=== PATIENT | male | born 1955 | race Caucasian/White ===

== ENCOUNTER 2020-05-23 13:22 | Outpatient (REF) | payer BC, SELFPAY ==
--- NOTE | 2020-05-23 | US_ITS ---
EXAMINATION: COLOR-FLOW DUPLEX IMAGING OF THE BILATERAL LOWER EXTREMITY ARTERIAL SYSTEM. VELOCITY MEASUREMENTS THROUGHOUT THE FEMORAL ARTERIES WITH ANKLE-BRACHIAL PERIPHERAL ARTERIAL TESTING. CLINICAL INFORMATION: This is a 65-year-old male with bilateral pressure ulcers. Peripheral arterial disease. Interventional Radiologist: Haroon Webb M.D., F.S.I.R., F.A.C.R. RIGHT FEMORAL RUNOFF VELOCITIES: The right common femoral artery measures 119 cm/s and triphasic. The right profunda femoral artery is 52 cm/s and is triphasic. Right proximal superficial femoral artery measures 76 cm/s and triphasic. Mid superficial femoral artery is 78 cm/s and triphasic. Distal right superficial femoral artery measures 55 cm/s and is triphasic. Right popliteal velocity measures 47 cm/s and is triphasic. The posterior tibial artery velocity measures 70 cm/s and was triphasic. LEFT FEMORAL RUNOFF VELOCITIES: The left common femoral artery measures 100 cm/s and triphasic. The left profunda femoral artery is 57 cm/s and is triphasic. Left proximal superficial femoral artery measures 68 cm/s and triphasic. Mid superficial femoral artery is 74 cm/s and triphasic. Distal left superficial femoral artery measures 60 cm/s and is triphasic. Left popliteal velocity measures 36 cm/s and is triphasic. The posterior tibial artery velocity measures 40 cm/s and was biphasic. A cardiac arrhythmia was evident during the duplex portion of the study. There is diffuse mild calcification within the vessels throughout the lower extremities bilaterally. US/US arterial duplex LE BI IMPRESSION: 1. No focal hemodynamically significant stenosis bilaterally within the lower extremity inflow and outflow arterial systems.
== END 2020-05-23 13:23 | disposition home or self-care (01) ==
LOC: HO.US 13:22
PROVIDERS: PCP Internal Medicine; Visit Provider Surgery
DX: L89.893 Pressure ulcer of other site, stage 3 (principal)
CPT/HCPCS: 93925

== ENCOUNTER 2020-06-01 10:37 | Outpatient (REF) | payer BC, SELFPAY ==
--- NOTE | 2020-06-01 10:45 | XR_ITS ---
EXAMINATION: XR GREAT TOE, RIGHT XR GREAT TOE, LEFT CLINICAL INFORMATION: Bilateral great toe pain. Rule out osteomyelitis. COMPARISON: None TECHNIQUE: 4 views left toe and 3 views right toe. FINDINGS: Right toe: There is a subluxed PIP joint right great toe with bony erosive changes. No periosteal thickening seen. There is a soft tissue ulceration suspected along the medial and plantar aspect of the right great toe. The rest of the visualized bones are osteopenic but no fracture is seen. Left toe: There is a hallux valgus deformity 1st MTP joint. No bony erosive changes. No visible fracture. There is mild dorsal tarsometatarsal spurring. The soft tissues are normal. XR/XR toe LT min 2V IMPRESSION: Diffuse osteopenia. Subluxed PIP joint right great toe with bony erosive changes. No periosteal thickening. Soft tissue ulceration along the medial and plantar aspect right great toe. Hallux valgus deformity 1st MTP joint. No visible acute fracture or dislocation left great toe.
--- NOTE | 2020-06-01 10:45 | XR_ITS ---
EXAMINATION: XR GREAT TOE, RIGHT XR GREAT TOE, LEFT CLINICAL INFORMATION: Bilateral great toe pain. Rule out osteomyelitis. COMPARISON: None TECHNIQUE: 4 views left toe and 3 views right toe. FINDINGS: Right toe: There is a subluxed PIP joint right great toe with bony erosive changes. No periosteal thickening seen. There is a soft tissue ulceration suspected along the medial and plantar aspect of the right great toe. The rest of the visualized bones are osteopenic but no fracture is seen. Left toe: There is a hallux valgus deformity 1st MTP joint. No bony erosive changes. No visible fracture. There is mild dorsal tarsometatarsal spurring. The soft tissues are normal. XR/XR toe RT min 2V IMPRESSION: Diffuse osteopenia. Subluxed PIP joint right great toe with bony erosive changes. No periosteal thickening. Soft tissue ulceration along the medial and plantar aspect right great toe. Hallux valgus deformity 1st MTP joint. No visible acute fracture or dislocation left great toe.
== END 2020-06-01 10:38 | disposition home or self-care (01) ==
LOC: HO.XRAY 10:37
PROVIDERS: PCP Internal Medicine; Visit Provider Physician Assistant
DX: S91.101A Unspecified open wound of right great toe without damage to nail, initial encounter (principal); S91.102A Unspecified open wound of left great toe without damage to nail, initial encounter; M79.675 Pain in left toe(s); M79.674 Pain in right toe(s)
CPT/HCPCS: 73660

== ENCOUNTER → 2020-06-13 14:52 | Outpatient (BNVA) | payer BC, SELFPAY | PROVIDERS: Visit Provider Internal Medicine | DX: Z76.89 Persons encountering health services in other specified circumstances (principal) ==

== ENCOUNTER 2020-07-30 10:07 | Outpatient (REF) | payer BC, SELFPAY ==
[2020-07-30 11:23] LABS: Estimated Average Glucose 100 mg/dL; Hemoglobin A1c % 5.1 %
[2020-07-30 11:41] LABS: Blood Urea Nitrogen 23 mg/dL (9-16); Estimated Glomerular Filt Rate 46
== END 2020-07-30 10:08 | disposition home or self-care (01) ==
LOC: HO.HMGCLDS 10:07
PROVIDERS: PCP Internal Medicine; Visit Provider Surgery
DX: L89.90 Pressure ulcer of unspecified site, unspecified stage (principal)
CPT/HCPCS: 36415; 82565; 83036; 84520

== ENCOUNTER 2020-08-02 15:04 | Outpatient (REF) | payer BC, SELFPAY ==
--- NOTE | ~2020-08-02 | MR_ITS ---
EXAMINATION: MRI OF THE RIGHT FOOT WITHOUT AND WITH CONTRAST CLINICAL INFORMATION: Nonhealing diabetic foot ulcer. Osteopenic. COMPARISON: X-ray of the right foot great toe May 2020. TECHNIQUE: MRI of the right foot without and with contrast. 10 mL of Gadavist contrast given intravenously. 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 This is manifested by cartilage loss, subchondral cystic change and marginal osteophytes. The distal phalanx is flexed and tilted laterally and subluxed lateral. There is a trace joint effusion. Along the plantar medial aspect of the IP joint, there is overlying heterogeneity and surface irregularity of the subcutaneous soft tissues and presumably the skin. This extends over a distance of approximately 1 cm transverse and 1 cm craniocaudal. There is enhancement in the soft tissues surrounding this focus. The underlying bone is normal in signal without bony erosion. There is mild arthrosis of the 1st MTP joint and hallux sesamoid joints manifested by cartilage heterogeneity and small marginal osteophytes. No significant effusion. First tarsometatarsal joint is intact. Remaining bone and joints unremarkable. Muscles/tendons: There is severe atrophy and fatty infiltration of the muscles of the great toe. Additional findings: The remaining bones and joints in the forefoot are unremarkable except for prominent flexion at the PIP joints. There is also severe diffuse atrophy and fatty infiltration throughout the muscles in the visualized foot. 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 Abnormality in the overlying subcutaneous soft tissues, compatible with soft tissue ulceration and surrounding cellulitis. However, no evidence of concomitant osteomyelitis.
== END 2020-08-02 15:05 | disposition home or self-care (01) ==
LOC: HO.MRI 15:04
PROVIDERS: Visit Provider Surgery
DX: E11.621 Type 2 diabetes mellitus with foot ulcer (principal)
CPT/HCPCS: 73720; A9585

== ENCOUNTER → 2021-03-25 16:05 | Outpatient (RCR) | payer BC, SELFPAY | END | disposition home or self-care (01) | LOC: HO.WCC 03-12 12:47 | PROVIDERS: PCP Internal Medicine; Visit Provider Surgery | DX: L89.893 Pressure ulcer of other site, stage 3 (principal); G90.09 Other idiopathic peripheral autonomic neuropathy; Z79.82 Long term (current) use of aspirin; Z79.899 Other long term (current) drug therapy; Z79.01 Long term (current) use of anticoagulants | CPT/HCPCS: 11042; 97597 ==